=== PATIENT | male | born 1960 | race Caucasian/White ===

== ENCOUNTER 2017-09-10 13:12 | Outpatient (CLI) | payer OTHER ==
[2017-09-10] MEDS ORDERED: GADOPENTETATE DIMEGLUMINE 5 ML VIAL IVP ONE ×3 (13:42→14:09)
[2017-09-10] MEDS ORDERED: LIDOCAINE 1% 10 ML MDV ONE (13:43)
[2017-09-10] MEDS ORDERED: IOTHALAMATE MEGLUMINE 50 ML VIAL ONE (13:43)
[2017-09-10] MEDS ORDERED: IOTHALAMATE MEGLUMINE 50 ML VIAL IVP ONE (14:09)
[2017-09-10] MEDS ORDERED: BUFFERED LIDOCAINE 10 ML SYRINGE IU ONE (14:09)
[2017-09-10] MEDS ORDERED: LIDOCAINE 1% 10 ML MDV SUBQ ONE (14:09)
--- NOTE | 2017-09-10 15:21 | XRAY Report ---
FLUOROSCOPICALLY GUIDED RIGHT HIP INJECTION: 09/10/2017 CLINICAL INDICATION: History of fracture, worsening pain. FINDINGS: Following obtaining informed consent, the patient's right hip was prepped and draped in th e usual sterile fashion. The skin and soft tissues were anesthetized with lidocaine. A spinal needle was inserted into the right hip joint, and following confirmation of needle positioning, a combinatio n of Iodinated contrast, dilute gadolinium, and lidocaine was injected intraarticularly. The patient tolerated the procedure well. No immediate complications. Spot image reveals no evidence of contrast extravasation. IMPRESSION: SUCCESSFUL RIGHT HIP INJECTION FOR MR ARTHROGRAM. FLUOROSCOPY TIME: 23 SECONDS; 1 SPOT IMAGE OBTAINED. JOB #: [id number] EXT JOB #:[id number]
--- NOTE | 2017-09-10 16:33 | MRI Report ---
EXAM: RIGHT HIP MRI ARTHROGRAM WITH CONTRAST EXAM DATE: 09/10/2017 02:37 PM. CLINICAL HISTORY: Right hip pain. Previous avulsion fracture about 16 years ago. COMPARISON: None. TECHNIQUE: Multiplanar, multisequence T1-weighted and fluid-sensitive, small [id number] sequences of the hip and large cffya-wv-jero sequences of the pelvis after an arthrographic injection of dilute gadolinium, dictated under a separate exam. Other: None. FINDINGS: Bones: Small subcortical cysts at the superior and anterosuperior aspects of the left and right aceta bulums. No acute fracture or bone lesions. There is slight diminished bilateral femoral head-neck off set. Right Hip: No acetabular retroversion. The right femoral alpha angle approximately 58 degrees which i s mildly elevated. No loose bodies. 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 There is a full-thickness tear at the anterior aspect of the rig ht acetabular labrum (sagittal images 10-12 of series 701 and axial oblique images 14-16 of series 80 1). The ligamentum teres is intact. Other Joints: Degenerative disk changes at the visualized lower lumbar spine. The sacroiliac joints a nd pubic symphysis and left hip are grossly unremarkable. Musculature: No edema or fatty atrophy. The gluteus medius and minimus tendons are normal. Partial te ar of the proximal end of the right common hamstring tendon. The ischiofemoral space is normal. Pelvic Cavity: The visualized viscera are unremarkable. No lymphadenopathy. No free fluid in the pelv is. Other: The visualized sciatic nerves are unremarkable. No bursitis. The subcutaneous tissues are unre markable. IMPRESSION: 1. Slight diminished bilateral femoral head-neck offset. Mildly elevated right femoral alpha angle. 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 2. Full-thickness tear at the anterior aspect of the right acetabular labrum. 3. Degenerative disk changes at the visualized lower lumbar spine. 4. Partial tear at the proximal end of the right common hamstring tendon. 5. Small subcortical cysts at the anterosuperior and superior aspects of the left and right acetabulu ms which are degenerative in etiology. 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 [facility] Referring Provider Line: [phone] SITE ID: [id number]
== END 2017-09-10 13:13 | disposition home or self-care (01) ==
LOC: DI 13:12
PROVIDERS: ATTEND Family Medicine
DX: S73.191A Other sprain of right hip, initial encounter (principal); M51.36 Other intervertebral disc degeneration, lumbar region; S76.811A Strain of other specified muscles, fascia and tendons at thigh level, right thigh, initial encounter; M94.251 Chondromalacia, right hip; M16.11 Unilateral primary osteoarthritis, right hip
CPT/HCPCS: 20610; 73722; 77002; Q9961

== ENCOUNTER 2017-09-20 13:13 | Outpatient (CLI) | payer OTHER ==
[2017-09-20] MEDS ORDERED: GADOPENTETATE DIMEGLUMINE 5 ML VIAL IVP ONE ×2 (13:28→13:53)
[2017-09-20] MEDS ORDERED: IOTHALAMATE MEGLUMINE 50 ML VIAL ONE (13:28)
[2017-09-20] MEDS ORDERED: IOTHALAMATE MEGLUMINE 50 ML VIAL IVP ONE (13:53)
[2017-09-20] MEDS ORDERED: BUFFERED LIDOCAINE 10 ML SYRINGE IU ONE (13:53)
--- NOTE | 2017-09-20 18:39 | MRI Report ---
EXAM: RIGHT SHOULDER MRI ARTHROGRAM WITH CONTRAST EXAM DATE: 09/20/2017 02:54 PM. CLINICAL HISTORY: Cervicalgia, pain in unspecified shoulder. COMPARISON: None. TECHNIQUE: Multiplanar, multisequence T1-weighted and fluid-sensitive sequences of the shoulder after an arthrographic injection of dilute gadolinium, dictated under a separate exam. Other: None. FINDINGS: Acromioclavicular Region: The acromion is type II. AC joint is moderately osteoarthritic. The coracoa cromial and coracoclavicular ligaments are intact. There is no contrast or fluid in the subacromial/s ubdeltoid bursa. Glenohumeral Region: No subluxation. Some debris seen in the joint. No focal large loose bodies. Glob al loss of articular cartilage in both sides of the glenohumeral joint. Large marginal osteophyte hayder ses from the inferior medial humeral head. The glenohumeral ligaments and joint capsule are unremarka ble. Bone Marrow: No fracture, marrow edema or bone lesions. Labrum: Circumferential tear of the labrum. Biceps Tendon: The long head of the biceps tendon and biceps steven are intact. Musculature/Rotator Cuff: Mild tendinopathy supraspinatus and infraspinatus portions of the rotator c uff. No edema or fatty atrophy. Other: The subcutaneous tissues are unremarkable. IMPRESSION: 1. Type II unipartite undersurface osseous acromion shape, AC joint is moderately osteoarthritic. Damián e debris is seen in the joint. No focal large loose bodies. Global loss of articular cartilage on bot h sides of the glenohumeral joint and there is a large marginal osteophyte arising from the inferior medial humeral head. 2. Circumferential labral tear. 3. Mild tendinopathy of the supraspinatus and infraspinatus portions of the cuff. 4. Long head of biceps is normal. [facility] Referring Provider Line: [phone] SITE ID: [id number]
--- NOTE | 2017-09-20 19:25 | XRAY Report ---
FLUOROSCOPICALLY-GUIDED RIGHT SHOULDER INJECTION FOR MR ARTHROGRAM: 09/20/2017 CLINICAL INDICATION: Pain. Following obtaining informed consent, the patient's right shoulder was prepped and draped in the usua l sterile fashion. The skin and soft tissues were anesthetized with lidocaine. A spinal needle was inserted into the right glenohumeral joint, and following confirmation of needle positioning, a combi nation of iodinated contrast, dilute gadolinium, and lidocaine was injected intraarticularly. The pa tient tolerated the procedure well. No immediate complications. Spot image reveals no evidence of c ontrast extravasation. IMPRESSION: SUCCESSFUL RIGHT SHOULDER INJECTION FOR MR ARTHROGRAM. FLUOROSCOPY TIME: 31 seconds; one spot image obtained. JOB #: [id number] EXT JOB #:[id number]
--- NOTE | 2017-09-21 13:16 | MRI Report ---
EXAM: MRI CERVICAL SPINE WITHOUT CONTRAST EXAM DATE: 09/20/2017 03:18 PM. CLINICAL HISTORY: Cervicalgia, pain in unspecified shoulder. COMPARISONS: None. TECHNIQUE: Multiplanar, multisequence T1-weighted and fluid-sensitive sequences of the cervical spine without contrast. Other: None. FINDINGS: Neurologic Structures: The visualized posterior fossa structures are unremarkable. No signal abnormal ity in the visualized spinal cord. Alignment: No scoliosis or spondylolisthesis. Bone Marrow: No gross fractures or bone lesions. No marrow edema. Interspace Levels/Facets: C1-C2: Unremarkable. C2-C3: Unremarkable. C3-C4: Left greater than right uncovertebral hypertrophy, left greater than right facet arthropathy. Moderate left, mild right foraminal narrowing. C4-C5: Posterior disk osteophyte complex and mild bilateral facet arthropathy. No significant canal n arrowing. No significant foraminal narrowing. C5-C6: Disk desiccation. Left paracentral disk osteophyte complex and uncovertebral hypertrophy. Mild bilateral facet arthropathy. Mild left subarticular narrowing. Mild to moderate left, mild right for aminal narrowing. C6-C7: Disk desiccation. Mild bilateral facet arthropathy. No significant canal or foraminal narrowin g. C7-T1: Unremarkable. Musculature: Normal. No edema or fatty atrophy. Other: The paravertebral and prevertebral soft tissues are normal. IMPRESSION: 1. No significant spinal canal narrowing. Minimal canal narrowing most pronounced at C5-C6. 2. At C3-C4, moderate left and mild right foraminal narrowing secondary to uncovertebral hypertrophy could be correlated with left C4 radiculopathy. 3. At C5-C6, mild to moderate left, mild right foraminal narrowing secondary to uncovertebral hypertr ophy. Mild left paracentral disk osteophyte complex flattening the ventral contour of the cord. 4. At C6-C7, mild bilateral facet arthropathy without significant canal or foraminal narrowing. [facility] Referring Provider Line: [phone] SITE ID: [id number]
== END 2017-09-20 13:14 | disposition home or self-care (01) ==
LOC: DI 13:13
PROVIDERS: ATTEND Family Medicine
DX: M19.011 Primary osteoarthritis, right shoulder (principal); S43.491A Other sprain of right shoulder joint, initial encounter; M75.91 Shoulder lesion, unspecified, right shoulder; M47.892 Other spondylosis, cervical region; M50.321 Other cervical disc degeneration at C4-C5 level
CPT/HCPCS: 23350; 72141; 73222; 77002; Q9961